=== PATIENT | female | born 1975 | race American Indian/Alaskan Native ===

== ENCOUNTER 2018-07-01 18:57 | Emergency (ER) | payer MEDICAID, OTHER ==
--- NOTE | 2018-07-01 19:24 | EDM.PDOC ---
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 Worse today, Passing about 15 large clots with largest size of grapefruit. Was seen ofr same2 weeks ago and hgb low and received 2 units of blood. Scheduled to see Brand Attendant on Sunday. Notes some heaviness with breathing, not as bad as prior. cramping, no dizziness, feeling tired. Recent dental abscess, now on 2 antibiotics, recently told was diabetic and has thyroid problem. Admits since on antibiotic is not a good at taking thyroid medication. Headache Pain Score (Numeric/FACES): 3 - Related Data Allergies Allergy/AdvReac Type Severity Reaction Status Date / Time No Known Allergies Allergy Verified 07/01/18 20:17 Home Meds: Home Meds Ferrous Sulfate [Feosol] 325 mg PO BID 02/05/14 [History] Cholecalciferol (Vitamin D3) [Vitamin D] 5,000 tab PO DAILY 07/01/18 [History] Levothyroxine [Synthroid] 50 mcg PO DAILY 07/01/18 [History] Penicillin V Potassium 500 mg PO BID 07/01/18 [History] metroNIDAZOLE [Flagyl] 500 mg PO BID 07/01/18 [History] Past Medical History - Past Health History Medical/Surgical History: Denies Medical/Surgical History Cardiovascular History: Reports: None Respiratory History: Reports: None Gastrointestinal History: Reports: None Genitourinary History: Reports: None 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 SPECIALIST 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: Reports: Ectopic , Musculoskeletal History: Reports: None Neurological History: Reports: None Psychiatric History: Reports: Depression Endocrine/Metabolic History: Reports: None Hematologic History: Reports: None Immunologic History: Reports: None Oncologic (Cancer) History: Reports: None Dermatologic History: Reports: None - Infectious Disease History Infectious Disease History: Reports: Chicken Pox - Past Surgical History Head Surgeries/Procedures: Reports: None Female Surgical History: Reports: Tubal Ligation Social & Family History - Family History Family Medical History: Noncontributory - Caffeine Use Caffeine Use: Reports: None ED ROS GENERAL - Review of Systems Review Of Systems: ROS reveals no pertinent complaints other than HPI. ED EXAM, GENERAL - Physical Exam Exam: See Below Exam Limited By: No Limitations General Appearance: Alert, No Apparent Distress, Anxious Eye Exam: Bilateral Eye: EOMI Ears: Normal External Exam Nose: Normal Inspection Head: Facial Swelling (left lower cheek) Neck: Normal Inspection Respiratory/Chest: No Respiratory Distress, Lungs Clear, Normal Breath Sounds Cardiovascular: Normal Peripheral Pulses, Regular Rate, Rhythm GI/Abdominal: Normal Bowel Sounds, Soft (Female) Exam: Normal External Exam, Vaginal Bleeding (large, orange size clot from vaginal vault. vaginal flow pooling , soaking gauze sponges. ). No: Normal Speculum Exam, Uterine Tenderness Back Exam: Full Range of Motion Extremities: Normal Inspection Neurological: Alert, Oriented Psychiatric: Normal Affect Skin Exam: Warm, Dry, Intact, Normal Color Course - Vital Signs Last Recorded V/S: Last Vital Signs Temp 97.5 F 07/01/18 19:09 Pulse 89 07/01/18 20:24 Resp 18 07/01/18 20:24 BP 159/70 H 07/01/18 20:24 Pulse Ox 100 07/01/18 20:24 - Orders/Labs/Meds Orders: Active Orders 24 hr Category Date Time Status OB Transvaginal [US] Urgent Exams 07/01/18 20:16 Stop Req Labs: Laboratory Tests 07/01/18 07/01/18 07/01/18 Range/Units 19:28 19:43 19:43 WBC 12.7 H (5.0-10.0) 10^3/uL RBC 4.29 (4.2-5.4) 10^6/uL Hgb 9.3 L (12.0-16.0) g/dL Hct 31.5 L (37.0-47.0) % MCV 73.4 L D (80-100) fL MCH 21.7 L (27.0-34.0) pg MCHC 29.5 L (33.0-35.0) g/dL Plt Count 316 (150-450) 10^3/uL Neut % (Auto) 68.2 (42.2-75.2) % Lymph % (Auto) 19.9 L (20.5-50.1) % [place] % (Auto) 6.5 (2-8) % Eos % (Auto) 4.1 H (1.0-3.0) % Baso % (Auto) 1.3 H (0.0-1.0) % Sodium 134 L (135-145) mmol/L Potassium 3.8 (3.6-5.0) mmol/L Chloride 103 (101-111) mmol/L Carbon Dioxide 20.0 L (21.0-31.0) mmol/L Anion Gap 14.8 BUN 7 (7-18) mg/dL Creatinine 0.6 (0.6-1.3) mg/dL Est Cr Clr Drug Dosing 112.15 mL/min Estimated GFR (MDRD) > 60 BUN/Creatinine Ratio 11.66 Glucose 164 H (74-105) mg/dL Calcium 8.8 (8.4-10.2) mg/dl Total Bilirubin 0.4 (0.2-1.0) mg/dL AST 23 (10-42) IU/L ALT 18 (10-60) IU/L Alkaline Phosphatase 74 (42-121) IU/L Total Protein 6.5 L (6.7-8.2) g/dl Albumin 3.5 (3.2-5.5) g/dl Globulin 3.0 Albumin/Globulin Ratio 1.17 TSH, Ultra Sensitive (0.45-5.33) uIu/mL HCG, Qual Negative Urine Color Light yellow (YELLOW) Urine Appearance Clear (CLEAR) Urine pH 6.5 (5.0-9.0) Ur Specific [place] <= 1.005 (1.005-1.030) Urine Protein Negative (NEGATIVE) Urine Glucose (UA) Negative (NEGATIVE) Urine Ketones Negative (NEGATIVE) Urine Occult Blood Large H (NEGATIVE) Urine Nitrite Negative (NEGATIVE) Urine Bilirubin Negative (NEGATIVE) Urine Urobilinogen 0.2 (0.2-1.0) mg/dL Ur Leukocyte Esterase Negative (NEGATIVE) Urine RBC >100 H /HPF Urine WBC 0-5 (0-5/HPF) /HPF Ur Epithelial Cells Few /HPF Urine Bacteria Few (0-FEW/HPF) /HPF 07/01/18 Range/Units 19:43 WBC (5.0-10.0) 10^3/uL RBC (4.2-5.4) 10^6/uL Hgb (12.0-16.0) g/dL Hct (37.0-47.0) % MCV (80-100) fL MCH (27.0-34.0) pg MCHC (33.0-35.0) g/dL Plt Count (150-450) 10^3/uL Neut % (Auto) (42.2-75.2) % Lymph % (Auto) (20.5-50.1) % [place] % (Auto) (2-8) % Eos % (Auto) (1.0-3.0) % Baso % (Auto) (0.0-1.0) % Sodium (135-145) mmol/L Potassium (3.6-5.0) mmol/L Chloride (101-111) mmol/L Carbon Dioxide (21.0-31.0) mmol/L Anion Gap BUN (7-18) mg/dL Creatinine (0.6-1.3) mg/dL Est Cr Clr Drug Dosing mL/min Estimated GFR (MDRD) BUN/Creatinine Ratio Glucose (74-105) mg/dL Calcium (8.4-10.2) mg/dl Total Bilirubin (0.2-1.0) mg/dL AST (10-42) IU/L ALT (10-60) IU/L Alkaline Phosphatase (42-121) IU/L Total Protein (6.7-8.2) g/dl Albumin (3.2-5.5) g/dl Globulin Albumin/Globulin Ratio TSH, Ultra Sensitive 6.88 H (0.45-5.33) uIu/mL HCG, Qual Urine Color (YELLOW) Urine Appearance (CLEAR) Urine pH (5.0-9.0) Ur Specific [place] (1.005-1.030) Urine Protein (NEGATIVE) Urine Glucose (UA) (NEGATIVE) Urine Ketones (NEGATIVE) Urine Occult Blood (NEGATIVE) Urine Nitrite (NEGATIVE) Urine Bilirubin (NEGATIVE) Urine Urobilinogen (0.2-1.0) mg/dL Ur Leukocyte Esterase (NEGATIVE) Urine RBC /HPF Urine WBC (0-5/HPF) /HPF Ur Epithelial Cells /HPF Urine Bacteria (0-FEW/HPF) /HPF Meds: Medications Discontinued Medications Generic Name Dose Route Start Last Admin Trade Name Freq PRN Reason Stop Dose Admin Medroxyprogesterone Acetate 10 mg 07/01/18 20:58 07/01/18 21:14 Provera PO 07/01/18 20:59 10 mg ONETIME ONE Administration - Re-Assessments/Exams Free Text/Narrative Re-Assessment/Exam: 07/02/18 03:17 [address] Marina here[address] TC Dr Reardon 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 SPECIALIST [employer]. Recommendation to initiate provera 10mg daily and follow with scheduled appointment as current stable VS and lab. Patient aware and comfortable with plan. Informed to follow up sooner if worsening of bleeding or experiencing SOB, dizziness Departure - Departure Time of Disposition: 21:01 Disposition: Home, Self-Care 01 Condition: Good Clinical Impression: Dysfunctional uterine bleeding - Discharge Information *PRESCRIPTION DRUG MONITORING PROGRAM REVIEWED*: No *COPY OF PRESCRIPTION DRUG MONITORING REPORT IN PATIENT AI: No Instructions: Menorrhagia, [id number], Dysfunctional Uterine Bleeding Referrals: Lynda Phipps NP [Primary Care Provider] - Forms: ED Department Discharge Additional Instructions: provera 10mg daily Follow up with Brand Attendant appointment as scheduled on Sunday Urgent follow up if increased weakness , dizzy, breathing difficulty - My Orders Last 24 Hours: My Active Orders 07/01/18 20:16 OB Transvaginal [US] Urgent - Assessment/Plan Last 24 Hours: My Active Orders 07/01/18 20:16 OB Transvaginal [US] Urgent
[2018-07-01 20:13] LABS: ANION GAP 14.8; CHLORIDE,CL 103 mmol/L (101-111); SODIUM,NA 134 mmol/L (135-145)
[2018-07-01 20:25] VITALS: BP 159/70
--- NOTE | 2018-07-02 03:17 | CONS ---
SERVICE DATE: 07/01/2018 REASON FOR CONSULTATION: Heavy vaginal bleeding, concern for need dilatation and curettage. HISTORY OF PRESENT ILLNESS: A 42-year-old, 7, para 4-0-3-4, presented to the Emergency Department reporting a grand total of approximately 3 weeks of heavy vaginal bleeding prior to being seen in the clinic 2 weeks ago to the point of needing a blood transfusion of 2 units packed red blood cells for hemoglobin down in the 7 range. At that time, uterine ultrasound was performed and showed an endometrial stripe of 24.8 mm, otherwise was fairly unremarkable. The patient reports that she was not given any medications to try and stop the bleeding, but was referred to [facility]; however, that appointment is not going to be until Sunday, the 05 of July reporting that she will saturate through a pad about every 2 hours and usually it will ease up for about 4 hours at a time and then be heavy again for 2 to 3 hours. Denies any severe cramping with this. Today, had come into the Emergency Department because from 5:00 to 7:00 p.m. the bleeding was constant and she reports passage of grapefruit sized clots. The patient reports that prior to this, her menstrual cycles were regular and although they were heavy, they were never continuous. She is not on any hormonal contraception and tests have been negative. She reports that she only has one fallopian tube that has a saline ring on it for contraception. The other fallopian tube was removed when she had an ectopic in the past. PAST MEDICAL HISTORY: 1. Newly diagnosed type 2 diabetes, which is not yet treated. A1c was in the 6 to 7 range and she has yet to see her provider for that. 2. Hypothyroidism, known for about the approximate last 6 months, has not taken her medications for about 3 or 4 days this week. 3. Ectopic . 4. Spontaneous x2. Current medical problem: Left-sided lower abscessed tooth. PAST SURGICAL HISTORY: Appendectomy, cholecystectomy, removal of ectopic with tube, and one other surgery that she cannot remember exactly. FAMILY HISTORY: The patient denies any pertinent positives or negatives. ALLERGIES: No known drug allergies. MEDICATIONS: Penicillin, uncertain dose; Flagyl 500 mg b.i.d. for her abscessed tooth; thyroid medication, uncertain dose, not taking regularly; vitamin D one dose weekly; and iron twice daily. REVIEW OF SYSTEMS: She denies any lightheadedness, chest pain, or shortness of breath. No new body aches or pains. No presyncopal feelings. Generally feels tired, but otherwise no overt symptoms of anemia. Last ate 2 slices of pizza and a glass of cranberry juice and a glass of water around 5 o'clock this evening about 3 hours prior to my seeing her and also continuous pain on the left lower jaw along with some swelling from her abscessed tooth. OBJECTIVE: Vital Signs: Pulse 89, BP 159/70, Resp rate 18, O2 sat 100%. Head: Normocephalic. Neck: Supple without adenopathy. Ears: Normal. Mouth: Mucous membranes are pink and moist. She has obvious swelling of the left lower jaw with some tenderness and mild erythema noted. Heart: Regular without murmur. Lungs: Clear to auscultation bilaterally. Abdomen: Soft without masses. Genitourinary: Per ER provider, copious amounts of blood, saturating sponges with attempts to evacuate. Extremities: Trace edema. No erythema or tenderness noted. LABORATORY DATA: Hemoglobin is 9.3. WBCs 12.7, Plts 316. Urine test negative. Blood sugar 164. TSH 6.88. Otherwise unremarkable. ASSESSMENT: 1. Menorrhagia. 2. Anemia of acute blood loss. 3. Left-sided dental abscess. 4. Type 2 diabetes, most likely diet-controlled, not currently on medications, last A1c around 6.5. 5. Hypothyroidism, currently noncompliant with her medication regimen and TSH of 6. 6. Hypertension PLAN: DAVIE Borja spoke with Dr. Myron Carlson, [facility] on-call at [facility] to determine if this was not the need for emergency transfer and recommended Provera 10 mg p.o. daily to be taken to stop the bleeding that should help within the next couple of days. I advised the patient that I could see her in the clinic as needed for followup between now and her appointment with Dr. Andres on Sunday for further assessment. Discussed with her that if dilatation and curettage were undertaken, it should be done only if emergency indication, which she does not meet criteria for at this time and there would be an increased risk of infection, especially with her ongoing dental abscess. Her indetermined diabetes control would also put her at increased risk for infection and other complications and the patient and her 's questions were answered. They were happy with the plan once everything was explained to them in sufficient detail. SHO /[id number] MTDD
== END 2018-07-01 21:25 | disposition home or self-care (01) ==
LOC: DL.ED 18:57
DX: N93.8 Other specified abnormal uterine and vaginal bleeding (principal); Z79.899 Other long term (current) drug therapy
CPT/HCPCS: 36415; 80053; 81001; 84443; 84703; 85025; 99284; A9270

== ENCOUNTER 2018-07-11 11:43 | Outpatient (CLI) | payer MEDICAID ==
[2018-07-11 17:35] VITALS: BP 135/73; PULSE 79
== END 2018-07-11 17:30 | disposition home or self-care (01) ==
LOC: DL.BLOODTR 11:43
PROVIDERS: ATTEND Nurse Practitioner Family
DX: D64.9 Anemia, unspecified (principal)
CPT/HCPCS: 36415; 36430; 86850; 86900; 86901; 86920; 86922; P9016

== ENCOUNTER 2020-04-25 18:59 | Emergency (ER) | payer MEDICAID ==
[2020-04-25 19:27] VITALS: BP 165/89; PULSE 71
[2020-04-25] MEDS ORDERED: Ketorolac 30 MG/ML SDV IM ONE (20:02)
--- NOTE | 2020-04-25 20:07 | EDM.PDOC ---
ED HPI GENERAL MEDICAL PROBLEM - General Chief Complaint: Flank Pain Stated Complaint: BACK AND STOMACH AREA HURTING Time Seen by Provider: 04/25/20 20:04 Source of Information: Reports: Patient History Limitations: Reports: No Limitations - History of Present Illness INITIAL COMMENTS - FREE TEXT/NARRATIVE: onset bilateral flank pain going to front of abd on-off since this am and not going away. denies UTI Sx. Bilateral Flank Pain Score (Numeric/FACES): 8 - Related Data Allergies Allergy/AdvReac Type Severity Reaction Status Date / Time No Known Allergies Allergy Verified 04/25/20 19:27 Home Meds: Home Meds metFORMIN HCl [Metformin HCl] 1,000 mg PO BIDMEALS 07/11/18 [History] lisinopriL [Lisinopril] 20 mg PO DAILY 04/25/20 [History] Past Medical History - Past Health History Medical/Surgical History: Denies Medical/Surgical History HEENT History: Reports: Impaired Vision Cardiovascular History: Reports: Hypertension Respiratory History: Reports: None Gastrointestinal History: Reports: GERD Genitourinary History: Reports: None 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 , Other PRODUCTION POSTING CLERK History: removal of one fallopian tube Musculoskeletal History: Reports: None Neurological History: Reports: None Psychiatric History: Reports: Anxiety, Depression, PTSD Endocrine/Metabolic History: Reports: Diabetes, Type II, Hypothyroidism, Obesity/BMI 30+ Hematologic History: Reports: Anemia Immunologic History: Reports: None Oncologic (Cancer) History: Reports: None Dermatologic History: Reports: None - Infectious Disease History Infectious Disease History: Reports: Chicken Pox - Past Surgical History Head Surgeries/Procedures: Reports: None GI Surgical History: Reports: Appendectomy, Cholecystectomy Female Surgical History: Reports: Hysterectomy, Tubal Ligation, Other (See Below) Other Female Surgeries/Procedures: salpingectomy Endocrine Surgical History: Reports: None Neurological Surgical History: Reports: None Social & Family History - Family History Family Medical History: No Pertinent Family History - Tobacco Use Tobacco Use Status *Q: Current Every Day Tobacco User Years of Tobacco use: 20 Packs/Tins Daily: 0.5 Second Hand Smoke Exposure: Yes - Caffeine Use Caffeine Use: Reports: None - Recreational Drug Use Recreational Drug Use: No ED ROS GENERAL - Review of Systems Review Of Systems: Comprehensive ROS is negative, except as noted in HPI. ED EXAM, RENAL/ - Physical Exam Exam: See Below Exam Limited By: No Limitations General Appearance: Alert, WD/WN, Mild Distress, Other (discomfort). No: Active Emesis Ears: Hearing Grossly Normal Throat/Mouth: Normal Voice, No Airway Compromise Head: Atraumatic Neck: Non-Tender, Full Range of Motion Respiratory/Chest: No Respiratory Distress Cardiovascular: Regular Rate, Rhythm GI/Abdominal: Tender, Other (minimal epig discomfort). No: Distended, Guarding, Rigid, Rebound (Female) Exam: Deferred Rectal (Female) Exam: Deferred Back Exam: CVA Tenderness (L), CVA Tenderness (R) Extremities: Normal Range of Motion Neurological: Alert, Oriented, Normal Cognition, Normal Gait, No Motor/Sensory Deficits Psychiatric: Flat Affect Skin Exam: Warm, Dry, Normal Color Lymphatic: No Adenopathy Course - Vital Signs Last Recorded V/S: Last Vital Signs Temp 36.5 C 04/25/20 19:21 Pulse 71 04/25/20 19:21 Resp 18 04/25/20 19:21 BP 165/89 H 04/25/20 19:21 Pulse Ox 97 04/25/20 19:21 - Orders/Labs/Meds Orders: Active Orders 24 hr Category Date Time Status CULTURE URINE [RM] Stat Lab 04/25/20 19:35 Received Acetaminophen/HYDROcodone [[place] 325-10 MG] Med 04/25/20 21:30 Once 1 tab PO ONETIME ONE Sulfamethoxazole/Trimethoprim [Septra DS] Med 04/25/20 21:30 Once 1 tab PO ONETIME ONE Labs: Laboratory Tests 04/25/20 04/25/20 04/25/20 Range/Units 19:35 20:20 20:20 WBC 14.1 H (5.0-10.0) 10^3/uL RBC 4.90 (4.2-5.4) 10^6/uL Hgb 15.4 D (12.0-16.0) g/dL Hct 44.4 (37.0-47.0) % MCV 90.6 D (80-100) fL MCH 31.4 (27.0-34.0) pg MCHC 34.7 (33.0-35.0) g/dL Plt Count 253 (150-450) 10^3/uL Neut % (Auto) 70.1 (42.2-75.2) % Lymph % (Auto) 19.5 L (20.5-50.1) % [place] % (Auto) 6.2 (2-8) % Eos % (Auto) 3.0 (1.0-3.0) % Baso % (Auto) 1.2 H (0.0-1.0) % Sodium 139 (136-145) mmol/L Potassium 4.0 (3.5-5.1) mmol/L Chloride 102 (98-107) mmol/L Carbon Dioxide 26 (21-32) mmol/L Anion Gap 15.0 H (7-13) mEq/L BUN 12 (7-18) mg/dL Creatinine 0.85 (0.55-1.02) mg/dL Est Cr Clr Drug Dosing 77.58 mL/min Estimated GFR (MDRD) > 60 BUN/Creatinine Ratio 14.1 (No establ ref range) Glucose 180 H (74-99) mg/dL Calcium 9.5 (8.5-10.1) mg/dL Total Bilirubin 0.3 (0.2-1.0) mg/dL AST 21 (15-37) U/L ALT 37 (14-59) U/L Alkaline Phosphatase 100 (46-116) U/L Total Protein 8.0 (6.4-8.2) g/dL Albumin 4.2 (3.4-5.0) g/dL Globulin 3.8 Albumin/Globulin Ratio 1.1 Urine Color Yellow (YELLOW) Urine Appearance Slightly cloudy (CLEAR) Urine pH 7.0 (5.0-9.0) Ur Specific [place] 1.020 (1.005-1.030) Urine Protein Negative (NEGATIVE) Urine Glucose (UA) Negative (NEGATIVE) Urine Ketones Negative (NEGATIVE) Urine Occult Blood Negative (NEGATIVE) Urine Nitrite Positive H (NEGATIVE) Urine Bilirubin Negative (NEGATIVE) Urine Urobilinogen 0.2 (0.2-1.0) mg/dL Ur Leukocyte Esterase Negative (NEGATIVE) Urine RBC Not seen /HPF Urine WBC 0-5 (0-5/HPF) /HPF Ur Epithelial Cells Many H (NOT SEEN) /HPF Urine Bacteria Many H (0-FEW/HPF) /HPF Meds: Medications Discontinued Medications Generic Name Dose Route Start Last Admin Trade Name Freq PRN Reason Stop Dose Admin Hydrocodone Bitart/Acetaminophen 1 tab 04/25/20 21:30 [place] 325-10 Mg PO 04/25/20 21:31 ONETIME ONE Ketorolac Tromethamine 30 mg 04/25/20 20:02 04/25/20 20:10 Toradol IM 04/25/20 20:03 30 mg ONETIME ONE Administration Trimethoprim/Sulfamethoxazole 1 tab 04/25/20 21:30 Septra Ds PO 04/25/20 21:31 ONETIME ONE - Re-Assessments/Exams Free Text/Narrative Re-Assessment/Exam: 04/25/20 21:32 case discussed with pt. Departure - Departure Time of Disposition: 21:32 Disposition: Home, Self-Care 01 Condition: Good Clinical Impression: UTI, Urinary tract infectious disease, Muscle strain - Discharge Information Instructions: Flank Pain, Adult, [id number] Forms: ED Department Discharge Additional Instructions: 1) avoid bending lifting straining 2) try ice or heat to sore area 3) follow up at clinic rx given; bactrim DS bid x 20 Sepsis Event Note (ED) - Evaluation Sepsis Screening Result: No Definite Risk - Focused Exam Vital Signs: Vital Signs Temp Pulse Resp BP Pulse Ox 04/25/20 19:21 36.5 C 71 18 165/89 H 97 - My Orders Last 24 Hours: My Active Orders 04/25/20 19:35 CULTURE URINE [RM] Stat 04/25/20 21:30 Acetaminophen/HYDROcodone [[place] 325-10 MG] 1 tab PO ONETIME ONE Sulfamethoxazole/Trimethoprim [Septra DS] 1 tab PO ONETIME ONE - Assessment/Plan Last 24 Hours: My Active Orders 04/25/20 19:35 CULTURE URINE [RM] Stat 04/25/20 21:30 Acetaminophen/HYDROcodone [[place] 325-10 MG] 1 tab PO ONETIME ONE Sulfamethoxazole/Trimethoprim [Septra DS] 1 tab PO ONETIME ONE
[2020-04-25 20:47] LABS: CHLORIDE,CL 102 mmol/L (98-107); SODIUM,NA 139 mmol/L (136-145)
--- NOTE | 2020-04-25 21:09 | CT ---
PROCEDURE INFORMATION: Exam: CT Abdomen And Pelvis Without Contrast Exam date and time: 04/25/2020 8:44 PM Age: 44 years old Clinical indication: Other: Flank pain; Additional info: Kidney stone TECHNIQUE: Imaging protocol: Computed tomography of the abdomen and pelvis without contrast. Radiation optimization: All CT scans at this facility use at least one of these dose optimization techniques: automated exposure control; mA and/or kV adjustment per patient size (includes targeted exams where dose is matched to clinical indication); or iterative reconstruction. COMPARISON: CT Abdomen Pelvis w Cont 02/09/2014 10:49 AM FINDINGS: Lungs: There is bibasilar atelectasis. There are no pleural effusions. Liver: The liver is enlarged, measuring 21.4 cm in the craniocaudad dimension. There is diffuse fatty infiltration of the liver. Allowing for noncontrast technique, no focal hepatic lesions are identified. Gallbladder and bile ducts: The gallbladder is surgically absent. There is no biliary ductal dilatation. Pancreas: The pancreas is within normal limits. Spleen: The spleen is normal in size. Adrenal glands: The adrenal glands are normal in appearance. Kidneys and ureters: The kidneys are symmetric in size. There is no hydronephrosis. No renal or ureteral calculi are identified. There is scant fat stranding adjacent to the lower pole of the right kidney. Stomach and bowel: The stomach is not distended. No pathologically dilated small bowel loops are identified. There is no evidence of colonic wall thickening or pericolonic inflammation. Appendix: There is no evidence of appendicitis. Intraperitoneal space: There is no free air or free fluid in the abdomen or pelvis. Vasculature: The aorta is normal in caliber. Lymph nodes: No pathologically enlarged lymph nodes are identified in the abdomen or pelvis. Urinary bladder: The urinary bladder appears normal. Reproductive: The uterus is surgically absent. The ovaries remain in situ. There is a 2.5 cm left ovarian cyst. Bones/joints: There is normal alignment throughout the visualized portion of the spine. No acute fractures or aggressive bone lesions are identified. Soft tissues: Within normal limits. IMPRESSION: 1. Enlarged fatty liver. Fatty infiltration can be due to benign steatosis versus alcoholic or non alcoholic steatohepatitis. 2. No evidence of hydronephrosis, renal or ureteral calculi. There appears to be mild fat stranding adjacent to the lower pole of the right kidney. Any chance of pyelonephritis should be ruled out clinically.
[2020-04-25] MEDS ORDERED: Acetaminophen/HYDROcodone 325-10 MG Tab PO ONE (21:30)
[2020-04-25] MEDS ORDERED: Sulfamethoxazole/Trimethoprim 800-160 MG Tab PO ONE (21:30)
== END 2020-04-25 21:45 | disposition home or self-care (01) ==
LOC: DL.ED 18:59
DX: S39.011A Strain of muscle, fascia and tendon of abdomen, initial encounter (principal); N39.0 Urinary tract infection, site not specified; E11.9 Type 2 diabetes mellitus without complications; I10 Essential (primary) hypertension; E03.9 Hypothyroidism, unspecified; E66.9 Obesity, unspecified; Z68.33 Body mass index [BMI] 33.0-33.9, adult; Z79.84 Long term (current) use of oral hypoglycemic drugs; Z79.899 Other long term (current) drug therapy; Z72.0 Tobacco use; X58.XXXA Exposure to other specified factors, initial encounter
CPT/HCPCS: 36415; 74176; 80053; 81001; 85025; 87086; 96372; 99284; A9270; J1885; 87088; 99283

== ENCOUNTER 2021-04-18 12:24 | Emergency (ER) | payer MEDICAID ==
[2021-04-18 12:42] VITALS: PULSE 86
[2021-04-18 13:24] LABS: CORONAVIRUS COVID-19 NAA POSITIVE (NEGATIVE)
== END 2021-04-18 13:54 | disposition home or self-care (01) ==
LOC: DL.ED 12:24
DX: U07.1 COVID-19 (principal); I10 Essential (primary) hypertension; E11.9 Type 2 diabetes mellitus without complications; E03.9 Hypothyroidism, unspecified; E66.9 Obesity, unspecified; Z68.29 Body mass index [BMI] 29.0-29.9, adult; Z79.84 Long term (current) use of oral hypoglycemic drugs; Z79.899 Other long term (current) drug therapy; Z72.0 Tobacco use
CPT/HCPCS: 0240U; 99283

== ENCOUNTER 2022-10-26 05:57 | Day surgery (SDC) | payer BC, MEDICAID ==
[2022-10-26] MEDS ORDERED: Dextrose 5%-0.45% NaCl 1,000 ML IV SCH (06:00)
[2022-10-26] MEDS ORDERED: fentaNYL 100 MCG/2 ML SDV ONE (07:05)
[2022-10-26] MEDS ORDERED: Midazolam 1 MG/ML 2 ML SDV ONE (07:05)
[2022-10-26] MEDS ORDERED: fentaNYL 100 MCG/2 ML SDV IV ONE ×5 (07:13→07:24)
[2022-10-26] MEDS ORDERED: Midazolam 1 MG/ML 2 ML SDV IV ONE ×6 (07:14→07:21)
[2022-10-26 09:50] VITALS: BP 118/59; PULSE 52
== END 2022-10-26 09:30 | disposition home or self-care (01) ==
LOC: DL.ENDO 05:57
PROVIDERS: ATTEND Internal Medicine Gastroenterology
DX: Z12.11 Encounter for screening for malignant neoplasm of colon (principal); K64.8 Other hemorrhoids; K21.9 Gastro-esophageal reflux disease without esophagitis; M54.50 Low back pain, unspecified; E11.9 Type 2 diabetes mellitus without complications; E03.9 Hypothyroidism, unspecified; E66.09 Other obesity due to excess calories; Z80.0 Family history of malignant neoplasm of digestive organs; Z90.49 Acquired absence of other specified parts of digestive tract; Z86.16 Personal history of COVID-19; Z68.32 Body mass index [BMI] 32.0-32.9, adult
CPT/HCPCS: 45378; J2250; J3010; J7042

== ENCOUNTER 2023-02-10 10:50 | Emergency (ER) | payer BC ==
[2023-02-10] MEDS ORDERED: Sodium Chloride 0.9% 1,000 ML IV ONE (11:06)
[2023-02-10] MEDS ORDERED: Ondansetron 4 MG/2 ML SDV IV ONE (11:06)
[2023-02-10] MEDS ORDERED: Sodium Chloride 0.9% 10 ML Syringe FLUSH PRN (11:06)
[2023-02-10 11:16] LABS: BASOPHILS PERCENT AUTO 0.2 % (0.0-1.0); EOSINOPHILS PERCENT AUTO 0.8 % (1.0-3.0); HEMATOCRIT 49.1 % (37.0-47.0); HEMOGLOBIN 17.5 g/dL (12.0-16.0); LYMPHOCYTES PERCENT AUTO 3.8 % (20.5-50.1); MEAN CORPUSCULAR HEMOGLOBIN 30.7 pg (27.0-34.0); MEAN CORPUSCULAR HGB CONC 35.6 g/dL (33.0-35.0); MEAN CORPUSCULAR VOLUME 86.1 fL (80-100); MONOCYTES PERCENT AUTO 4.6 % (2-8); NEUTROPHILS PERCENT AUTO 90.6 % (42.2-75.2); PLATELET COUNT,PLT 272 10^3/uL (150-450)
[2023-02-10 11:28] VITALS: BP 141/108; PULSE 95
[2023-02-10 11:41] LABS: ALANINE AMINOTRANSFERASE,ALT 39 U/L (14-59); ALBUMIN 4.3 g/dL (3.4-5.0); ALKALINE PHOSPHATASE 104 U/L (46-116); ANION GAP 12.3 mEq/L (7-13); ASPARTATE AMNIOTRANSFERASE,AST 17 U/L (15-37); BILIRUBIN TOTAL 0.4 mg/dL (0.2-1.0); BLOOD UREA NITROGEN,BUN 9 mg/dL (7-18); BUN/CREATININE RATIO 10.3 (No establ ref range); CALCIUM 9.4 mg/dL (8.5-10.1); CARBON DIOXIDE,CO2 26 mmol/L (21-32); CHLORIDE,CL 99 mmol/L (98-107); CREATININE 0.87 mg/dL (0.55-1.02); EST CRCL DRUG DOSING (CG) 73.48 mL/min; GLUCOSE RANDOM 138 mg/dL (70-99); MAGNESIUM 1.9 mg/dL (1.8-2.4); POTASSIUM,K 4.3 mmol/L (3.5-5.1); PROTEIN TOTAL,TP 8.5 g/dL (6.4-8.2)
[2023-02-10 11:42] LABS: LACTIC ACID 1.8 mmol/L (0.4-2.0)
[2023-02-10 11:50] LABS: ESTIMATED GFR 84 mL/min (>=60)
[2023-02-10 11:58] LABS: SODIUM,NA 133 mmol/L (136-145)
[2023-02-10] MEDS ORDERED: Iopamidol 612 MG/ML 100 ML Bottle IVPUSH ONE (12:11)
[2023-02-10 12:20] LABS: CORONAVIRUS COVID-19 NAA NEGATIVE (NEGATIVE); INFLUENZA A NAA NEGATIVE (NEGATIVE); INFLUENZA B NAA NEGATIVE (NEGATIVE); RESPIRATORY SYNCYTIAL VIR NAA NEGATIVE (NEGATIVE)
[2023-02-10 12:23] LABS: APPEARANCE,URINE CLEAR (CLEAR); BILIRUBIN,URINE NEGATIVE (NEGATIVE); COLOR,URINE YELLOW (YELLOW); GLUCOSE,URINE NEGATIVE (NEGATIVE); KETONES,URINE NEGATIVE (NEGATIVE); LEUKOCYTE ESTERASE,URINE NEGATIVE (NEGATIVE); NITRITE,URINE NEGATIVE (NEGATIVE); OCCULT BLOOD,URINE TRACE-INTACT (NEGATIVE); PROTEIN,URINE NEGATIVE (NEGATIVE); UROBILINOGEN,URINE 0.2 mg/dL (0.2-1.0)
[2023-02-10 12:33] LABS: BACTERIA,URINE FEW /HPF (0-FEW/HPF); EPITHELIAL CELLS,URINE FEW /HPF (NOT SEEN); WBC,URINE 0-5 /HPF (0-5/HPF)
[2023-02-10] MEDS ORDERED: Piperacillin/Tazobactam 4.5 GM in Sodium Chloride 0.9% 100 ML IV ONE (13:11)
[2023-02-10] MEDS ORDERED: Acetaminophen 500 MG Tab PO ONE (13:26)
[2023-02-10] MEDS ORDERED: Ketorolac 30 MG/ML SDV IVPUSH ONE (13:26)
[2023-02-10] MEDS: Take Home: Cyclobenzaprine 10 MG Tab, 4 Tab Pack PO ONE ×2 (13:33→13:43)
[2023-02-10] MEDS: Dexamethasone 4 MG Tab PO ONE ×2 (13:37→13:43)
[2023-02-10] MEDS ORDERED: Take Home: Ciprofloxacin HCl 500 MG, 6 Tab Pack PO ONE (14:00)
[2023-02-10] MEDS ORDERED: Take Home: Ondansetron 4 MG Tab.DIS, 5 Tab Pack PO ONE (14:00)
[2023-02-10] MEDS ORDERED: Take Home: metroNIDAZOLE 250 MG Tab, 8 Tab Pack PO ONE (14:00)
== END 2023-02-10 14:17 | disposition home or self-care (01) ==
LOC: DL.ED 10:50
DX: K52.9 Noninfective gastroenteritis and colitis, unspecified (principal); K76.9 Liver disease, unspecified; I10 Essential (primary) hypertension; J44.9 Chronic obstructive pulmonary disease, unspecified; E11.9 Type 2 diabetes mellitus without complications; Z20.822 Contact with and (suspected) exposure to COVID-19; Z86.16 Personal history of COVID-19; Z79.899 Other long term (current) drug therapy
CPT/HCPCS: 0241U; 36415; 71045; 74177; 80053; 81001; 83605; 83735; 84145; 84484; 85025; 87040; 87081; 87430; 93005; 93010; 96361; 96365; 96375; 99284; 99285; A9270; J1885; J2405; J2543; J3490; J7030; Q0162; Q9967; J8540

== ENCOUNTER 2025-02-08 11:15 | Emergency (ER) | payer BC ==
[2025-02-08 11:52] VITALS: BP 148/64; PULSE 74
== END 2025-02-08 11:52 | disposition home or self-care (01) ==
LOC: DL.ED 11:15
DX: G44.019 Episodic cluster headache, not intractable (principal); I10 Essential (primary) hypertension; E11.9 Type 2 diabetes mellitus without complications; J44.9 Chronic obstructive pulmonary disease, unspecified; F17.200 Nicotine dependence, unspecified, uncomplicated; Z79.899 Other long term (current) drug therapy; Z86.16 Personal history of COVID-19; Z90.49 Acquired absence of other specified parts of digestive tract; Z90.710 Acquired absence of both cervix and uterus
CPT/HCPCS: 99283